=== PATIENT | female | born 1945 | race Caucasian/White ===

== ENCOUNTER 2020-08-25 12:59 | Outpatient (REF) | payer MEDICARE, SELFPAY ==
--- NOTE | 2020-08-25 | CT_ITS ---
EXAMINATION: CT CHEST WITHOUT CONTRAST CLINICAL INFORMATION: Pulmonary nodule. COMPARISON: CT chest 09/15/2019 TECHNIQUE: Multidetector volumetric CT imaging of the chest was done. Axial MIP volume rendering provided. Sagittal and coronal reformatted images were obtained. This CT examination was performed using dose optimization techniques as appropriate, variously including the following: *Automated exposure control *Adjustment of mA and/or kV according to patient size (this includes techniques or standardized protocols for targeted exams where dose is matched to indication/reason for exam; i.e. 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 LUNGS: There is bilateral apical pleural and parenchymal scarring. There is a 2 mm calcified nodule left upper lobe axial image 100/7, focal right apical subpleural thickening right upper lobe axial image 107/7, 2 mm nodule left lower lobe superior segment axial image 231/7, 5 mm nodule left upper lobe axial image 229/7, 4 mm subpleural nodule right lower lobe axial image 445/7. No additional pulmonary nodules seen. MEDIASTINUM: The thyroid lobes are symmetrical and normal. The central trachea and the bronchi are widely patent. Heart size and great vessels are of normal caliber. No abnormal mediastinal lymph nodes are seen. There are coronary artery calcifications present. No pericardial effusion are seen. PLEURA: There is no pleural effusion. No pleural mass or thickening. AXILLA: There are small shotty lymph nodes seen in bilateral axillae. UPPER ABDOMEN: Visualized liver, spleen, pancreas and bilateral adrenal glands are unremarkable. OSSEOUS STRUCTURES: No lytic or sclerotic process seen. There is T1-T2 degenerative disc changes with sclerosis and posterior spondylosis. CT/CT chest wo con IMPRESSION: Stable calcified and noncalcified pulmonary nodules. No new pulmonary nodules are seen. There is mild coronary artery calcifications. No mediastinal mass or lymphadenopathy seen.
== END 2020-08-25 13:00 | disposition home or self-care (01) ==
LOC: HO.CT 12:59
PROVIDERS: PCP Internal Medicine; Visit Provider Internal Medicine Pulmonary Disease
DX: R91.8 Other nonspecific abnormal finding of lung field (principal)
CPT/HCPCS: 71250

== ENCOUNTER → 2020-09-27 10:02 | Outpatient (BNVA) | payer MEDICARE, SELFPAY | PROVIDERS: PCP Internal Medicine; Referring Provider Internal Medicine; Visit Provider Internal Medicine Pulmonary Disease | DX: R91.8 Other nonspecific abnormal finding of lung field (principal); R06.00 Dyspnea, unspecified | CPT/HCPCS: 99212 ==

== ENCOUNTER 2021-10-18 09:01 | Outpatient (REF) | payer MEDICARE, SELFPAY ==
--- NOTE | ~2021-10-18 | CT_ITS ---
EXAMINATION: CT CHEST WITHOUT CONTRAST CLINICAL INFORMATION: Pulmonary nodule follow-up COMPARISON: None TECHNIQUE: Multidetector volumetric CT imaging of the chest was done. Axial MIP volume rendering provided. Sagittal and coronal reformatted images were obtained. This CT examination was performed using dose optimization techniques as appropriate, variously including the following: *Automated exposure control *Adjustment of mA and/or kV according to patient size (this includes techniques or standardized protocols for targeted exams where dose is matched to indication/reason for exam; i.e. 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 LUNGS: Previously noted bilateral apical pleural and parenchymal scarring is stable. 2 mm calcified left upper lobe nodule is stable. Series 4 image 147. Focal right apical subpleural thickening with nodularity is stable. Tiny nodule superior left lower lobe at 2 mm is stable series 4 image 266. Subpleural nodularity right lower lobe series 4 image 388 stable. The lungs do appear to be hyperaerated. New masses or consolidations or enlarging lesions are not seen. Overall the picture is one of stability. MEDIASTINUM: Coronary artery calcifications again noted. Heart is mildly enlarged. No pericardial thickening or effusion or significant adenopathy. Thoracic inlet unremarkable. PLEURA: There is no pleural effusion. No pleural mass or thickening. AXILLA: No lymphadenopathy. UPPER ABDOMEN: Unremarkable. OSSEOUS STRUCTURES: The thoracic spine is kyphotic with degenerative changes in the upper thoracic spine. Surgical hardware in the C-spine noted. Findings are stable. CT/CT chest wo con IMPRESSION: Stable findings in the lungs. No significant change from 08/25/2020. Follow-up can be done in one year. Fleischner guidelines were followed.
== END 2021-10-18 09:02 | disposition home or self-care (01) ==
LOC: HO.CT 09:01
PROVIDERS: Visit Provider Internal Medicine Pulmonary Disease
DX: R91.8 Other nonspecific abnormal finding of lung field (principal)
CPT/HCPCS: 71250

== ENCOUNTER → 2021-10-26 13:40 | Outpatient (BNVA) | payer MEDICARE, SELFPAY | PROVIDERS: PCP Internal Medicine; Visit Provider Internal Medicine Pulmonary Disease | DX: R91.8 Other nonspecific abnormal finding of lung field (principal); R06.00 Dyspnea, unspecified | CPT/HCPCS: 99212 ==

== ENCOUNTER → 2022-04-17 13:29 | Outpatient (BNVA) | payer MEDICARE, SELFPAY | PROVIDERS: PCP Internal Medicine; Visit Provider Internal Medicine Pulmonary Disease | DX: R91.8 Other nonspecific abnormal finding of lung field (principal); R06.00 Dyspnea, unspecified; R60.0 Localized edema; Z79.899 Other long term (current) drug therapy | CPT/HCPCS: 99212 ==